=== PATIENT | female | born 1990 | race Caucasian/White ===

== ENCOUNTER → 2020-11-02 | Outpatient (CLI) | payer BC, OTHER ==
[~2020-11-02] MED LIST: CIPR500T78 PO; HYDR-3720 PO; IBP800T PO; METR500T PO
--- NOTE | 2020-11-02 15:22 | Diagnostic Imaging Report ---
INDICATION: Positive urine test. The uterus measures 8.2 x 3.8 x 5.1 cm. The endometrium is 17 mm in thickness. There is an IUD present however the IUD is low in position with a portion in the lower uterine segment and the other portion in the cervix. No myometrial mass is seen. No definite intrauterine gestational sac is present. Right ovary measures 5.2 x 2.6 x 2.9 cm and the left ovary measures 3.4 x 2.2 x 2.27 cm. Ovaries demonstrate blood flow. There is a complex cyst of the right ovary approximately 2 cm in size, likely a corpus luteum. Left ovary is unremarkable and shows normal blood flow. There is no adnexal mass or free fluid. IMPRESSION: 1. No evidence of intrauterine or ectopic . Endometrium is thickened at 17 mm. IUD is abnormally positioned in the lower uterine segment and cervix. 2. Complex right ovarian cyst, likely corpus luteum. Dictated by: Dictated on workstation # [id number]
== END ==
LOC: RAD 10:05
PROVIDERS: ATTEND Obstetrics & Gynecology
DX: N83.201 Unspecified ovarian cyst, right side (principal); R93.89 Abnormal findings on diagnostic imaging of other specified body structures; Z97.5 Presence of (intrauterine) contraceptive device
CPT/HCPCS: 36415; 76801; 76817; 84702

== ENCOUNTER → 2021-02-14 | Outpatient (CLI) | payer OTHER ==
--- NOTE | 2021-02-14 17:12 | Diagnostic Imaging Report ---
INDICATION: , anatomic survey COMPARISON: 11/02/2020 TECHNIQUE: Multiple real-time grayscale images were obtained over the gravid uterus. FINDINGS: There is a single live intrauterine gestation in cephalic presentation. The cervix measures at least 3.5 cm in length. There is no funneling or endocervical fluid. The heart rate measures 140 BPM. The amniotic fluid appears subjectively normal. There is a vertical pocket measuring 3.2 cm. The placenta is posterior without evidence of previa. The stomach and kidneys are seen. The upper and lower spine is seen. The lateral ventricles, cerebellum, and cisterna magna are seen. A four-chamber heart is seen. The right and left ventricular outflow tracks are seen. The cord insertion is seen. The nose and lips are seen. The bladder is seen. Two umbilical arteries are present, consistent with a three-vessel cord. The diaphragm is seen. The upper and lower extremities are seen. The profile is seen. Biometrical measurements are as follows: Biparietal 4.46 cm, age 19 weeks 4 days. Head circumference 17.03 cm, age 19 weeks 5 days. Abdominal circumference 13.89 cm, age 19 weeks 3 days. Femur length 3.00 cm, age 19 weeks 2 days. Sonographic estimate age: 19 weeks 4 days. Sonographic estimated date of delivery: 07/07/2021. Estimated Weight: 286 gm (+/- 42 gm). LMP percentile: 8%. heart rate: 140 beats per minute. number: 1 of 1. IMPRESSION: 1. Single live intrauterine gestation measuring at 19 weeks and 4 days which is within range of the clinical dates of 20 weeks and 2 days. 2. heart rate and amniotic fluid are normal. 3. No abnormality is seen on anatomic survey. Dictated by: Dictated on workstation # [id number]
== END ==
LOC: RAD 15:09
PROVIDERS: ATTEND Obstetrics & Gynecology
DX: Z34.02 Encounter for supervision of normal first pregnancy, second trimester (principal); Z3A.19 19 weeks gestation of pregnancy
CPT/HCPCS: 76805

== ENCOUNTER → 2021-06-22 | Outpatient (CLI) | payer OTHER ==
[2021-06-22 12:11] LABS: BASOPHILS % (AUTO) 0 % (0-10); EOSINOPHILS # (AUTO) 0.1 10^3/uL (0.0-0.3); EOSINOPHILS % (AUTO) 1 % (0-10); HEMATOCRIT 35 % (35-52); HEMOGLOBIN 11.1 g/dL (11.5-16.0); LYMPHOCYTES # (AUTO) 1.4 10^3/uL (1.0-4.0); LYMPHOCYTES % (AUTO) 20 % (12-44); MEAN CORPUSCULAR HEMOGLOBIN 28 pg (25-34); MEAN CORPUSCULAR HGB CONC 32 g/dL (32-36); MEAN CORPUSCULAR VOLUME 88 fL (80-99); MEAN PLATELET VOLUME 9.8 fL (9.0-12.2); MONOCYTES # (AUTO) 0.6 10^3/uL (0.0-1.0); MONOCYTES % (AUTO) 8 % (0-12); NEUTROPHILS % (AUTO) 70 % (42-75); PLATELET COUNT 273 10^3/uL (130-400); WHITE BLOOD COUNT 7.1 10^3/uL (4.3-11.0)
[2021-06-22 12:19] LABS: ALBUMIN 3.5 GM/DL (3.2-4.5); POTASSIUM 3.7 MMOL/L (3.6-5.0)
[2021-06-22 12:20] LABS: CALCIUM 8.9 MG/DL (8.5-10.1)
[2021-06-22 12:22] LABS: TOTAL PROTEIN 6.7 GM/DL (6.4-8.2)
[2021-06-22 12:23] LABS: BILIRUBIN,TOTAL 0.2 MG/DL (0.1-1.0)
[2021-06-22 12:25] LABS: CREATININE SERUM 0.52 MG/DL (0.60-1.30)
[2021-06-22 12:28] LABS: URIC ACID 4.4 MG/DL (2.6-7.2)
== END ==
LOC: LAB 11:50
PROVIDERS: ATTEND Family Medicine
DX: L29.9 Pruritus, unspecified (principal)
CPT/HCPCS: 36415; 80053; 83615; 83789; 84550; 85025

== ENCOUNTER 2021-07-07 03:48 | Inpatient (IN) | payer OTHER ==
[2021-07-07] VITALS (51 sets, daily range): BP systolic 99–162; BP diastolic 56–102
[~2021-07-07] VITALS: Ht 158 cm; Wt 88.5 kg
[2021-07-07] MEDS ORDERED: D5 LR IV SOLUTION 1,000 ML IV ONE (04:25)
[2021-07-07] MEDS ORDERED: MINERAL OIL 30 ML TOP PRN (04:30)
[2021-07-07] MEDS ORDERED: PNV91TAB6 PO (04:53)
[2021-07-07] MEDS: CATHETER FLUSH 10 ML SYR IV SCH ×3 (05:40→22:00)
[2021-07-07] MEDS: D5 LR IV SOLUTION 1,000 ML IV SCH ×3 (05:40→20:30)
[2021-07-07 06:10] LABS: BASOPHILS % (AUTO) 0 % (0-10); EOSINOPHILS # (AUTO) 0.1 10^3/uL (0.0-0.3); EOSINOPHILS % (AUTO) 1 % (0-10); HEMATOCRIT 35 % (35-52); HEMOGLOBIN 11.1 g/dL (11.5-16.0); LYMPHOCYTES # (AUTO) 1.8 10^3/uL (1.0-4.0); LYMPHOCYTES % (AUTO) 19 % (12-44); MEAN CORPUSCULAR HEMOGLOBIN 28 pg (25-34); MEAN CORPUSCULAR HGB CONC 32 g/dL (32-36); MEAN CORPUSCULAR VOLUME 87 fL (80-99); MEAN PLATELET VOLUME 10.3 fL (9.0-12.2); MONOCYTES # (AUTO) 0.7 10^3/uL (0.0-1.0); MONOCYTES % (AUTO) 8 % (0-12); NEUTROPHILS # (AUTO) 6.6 10^3/uL (1.8-7.8); NEUTROPHILS % (AUTO) 71 % (42-75); PLATELET COUNT 295 10^3/uL (130-400); WHITE BLOOD COUNT 9.3 10^3/uL (4.3-11.0)
--- NOTE | 2021-07-07 08:08 | History & Physical-OB ---
OB - Chief Complaint & HPI Date/Time Date of Admission: Date of Admission: July 07, 2021 at 04:20 Date seen by a Provider: July 07, 2021 Time Seen by a Provider: 07:45 Chief Complaint/History OB-Reason for Admission/Chief: Rupture of Membranes Hx : 1 Hx Para: 0 Expected Date of Delivery: July 02, 2021 Gestational Age in Weeks: 40 Gestational Age in Days: 5 Other reason for admission: SROM History of Labs A neg, antibody neg, RI. HIV/HepB/RPR NR. GC/chlamydia neg. 1 hour glucola positive, 3 hour negative. GBS negative. Allergies and Home Medications Allergies Coded Allergies: No Known Drug Allergies (Unverified , 07/26/13) Patient Home Medication List Home Medication List Reviewed: Yes Pnv95/Ferrous Fumarate/FA ( Vitamin Tablet) 28 Mg Iron-800 Mcg Tablet, 1 EACH PO DAILY, (Reported) Entered as Reported by: ELOISA CAMPOS on 07/07/21 0453 Last Action: Reviewed Discontinued Medications Ciprofloxacin HCl (Cipro) 500 Mg Tablet, 500 MG PO BID Discontinued Reason: No Longer Taking Prescribed by: ZOEY WILLINGHAM on 07/26/132022 Last Action: Discontinued Hydrocodone Bit/Acetaminophen (Hydrocodone-Apap 10-325 Tablet) 1 Each Tablet, 1- 2 TAB PO Q3H PRN for PAIN Discontinued Reason: No Longer Taking Prescribed by: TON NESBITT on 07/26/131647 Last Action: Discontinued Ibuprofen (Motrin Tablet) 800 Mg Tablet, 1 TAB PO Q6H PRN for PAIN Discontinued Reason: No Longer Taking Prescribed by: TON NESBITT on 07/26/131647 Last Action: Discontinued Metronidazole (Flagyl 500 Mg) 500 Mg Tab, 1 EACH PO BID, (Reported) Discontinued Reason: No Longer Taking Entered as Reported by: ZOEY WILLINGHAM on 07/26/132021 Last Action: Discontinued OB - History Hx of Present Care: Yes Ultrasounds: Normal mid trimester US Obstetrical Complications: None Medical Complications: None Information Induced Hypertension: No Maternal Gestational Diabetes: No Hemorrhage: No Obstetrical History Hx : 1 Hx Para: 0 Patient Past Medical History PMHx: Denies SurgHx: Tonsillectomy [place] teeth extraction Social History/Family History Alcohol Use: Denies Use Recreational Drug Use: No Smoking Cessation: Never smoker Immunizations Influenza Vaccine Up-to-Date: Yes; Up-to-Date (Jan 09, 2021) First/Initial COVID19 Vaccine: Feb 21, 2020 Second COVID19 Vaccination: Mar 22, 2020 Third COVID19 Vaccination Date: Mar 04, 2021 COVID19 Vaccine Collar Cutter: Moderna Hepatitis A: No Hepatitis B: No Tetanus Booster (TDap): Less than 5yrs (04/24/21) Rubella: immune RPR/VDRL: Negative GBS Status: Negative HBsAG: Negative OB - Admission Exam Physical Exam Vitals: Vital Signs 07/07/21 07/07/21 05:50 06:51 Temp 36.3 Pulse 87 Resp 18 B/P (MAP) 115/56 (75) O2 Delivery Room Air HEENT: NCAT Abdomen: Gravid Extremities: Normal Cervical Dilatation: 5cm Effacement: 75% Station: -3 Membranes: Ruptured Amniotic Fluid: Clear Heart Rate: 130's Accelerations: Accelerations Present Decelerations: No Decelerations Short Term Variability: Present Long-Term Variability: Average (6-25) Contractions on Admission: 6-10 Minutes Apart Labs Laboratory Tests Test 07/07/21 04:05 07/07/21 05:24 Range/Units Membranes Rupture POSITIVE White Blood Count 9.3 4.3-11.0 10^3/uL Red Blood Count 4.00 3.80-5.11 10^6/uL Hemoglobin 11.1 L 11.5-16.0 g/dL Hematocrit 35 35-52 % Mean Corpuscular Volume 87 80-99 fL Mean Corpuscular Hemoglobin 28 25-34 pg Mean Corpuscular Hemoglobin Concent 32 32-36 g/dL Red Cell Distribution Width 14.6 H 10.0-14.5 % Platelet Count 295 130-400 10^3/uL Mean Platelet Volume 10.3 9.0-12.2 fL Immature Granulocyte % (Auto) 1 % Neutrophils (%) (Auto) 71 42-75 % Lymphocytes (%) (Auto) 19 12-44 % Monocytes (%) (Auto) 8 0-12 % Eosinophils (%) (Auto) 1 0-10 % Basophils (%) (Auto) 0 0-10 % Neutrophils # (Auto) 6.6 1.8-7.8 10^3/uL Lymphocytes # (Auto) 1.8 1.0-4.0 10^3/uL Monocytes # (Auto) 0.7 0.0-1.0 10^3/uL Eosinophils # (Auto) 0.1 0.0-0.3 10^3/uL Basophils # (Auto) 0.0 0.0-0.1 10^3/uL Immature Granulocyte # (Auto) 0.1 0.0-0.1 10^3/uL OB - Assessment/Plan/Diagnosis Assessment Admission Dx 31 yo G1 at 40w5d with spontaneous rupture of membranes in early labor Blood type A neg Rubella immune GBS neg Admission Status: Inpatient Order (span 2 midnights) Reason for Inpatient Admission: Labor, delivery and course Plan Problems: (1) SROM (spontaneous rupture of membranes) Onset Date: ~ 07/07/2021 Assessment & Plan: Pre-active labor, but is making some slow cervical change and would like to avoid pitocin if possible. heart tones currently reassuring, will continue expectant management, discussed risks of prolonged rupture of membranes vs risk of induction and will continue to reassess with each cervical check and as heart tones dictate. BARRY LAI MD July 07, 2021 08:08
[2021-07-07] MEDS ORDERED: LIDOCAINE/EPI 2% 1:200,00 (XYLOCAINE) 10 ML VIAL ONE (11:08)
[2021-07-07] MEDS ORDERED: OXYTOCIN PRE-MIX DRIP 500 ML IV SCH (12:15)
[2021-07-07] MEDS ORDERED: OXYTOCIN PRE-MIX DRIP 500 ML IV ONE ×2 (12:29→20:54)
[2021-07-07] MEDS ORDERED: fentaNYL INJ 100 MCG/2 ML AMP ONE ×3 (13:59→21:25)
[2021-07-07] MEDS ORDERED: fentaNYL INJ 100 MCG/2 ML AMP IVP PRN (14:00)
[2021-07-07] MEDS ORDERED: fentaNYL 2 mcg/ml BUPIVA 0.125 100 ML ONE (17:30)
[2021-07-07] MEDS ORDERED: LIDOCAINE PF 2% 5 ML (XYLOCAINE) VIAL ONE ×2 (17:45→20:57)
[2021-07-07] MEDS ORDERED: BUPIVACAINE 0.25% 10 ML (SENSORCAINE) VIAL ONE (17:45)
[2021-07-07] MEDS ORDERED: fentaNYL INJ 100 MCG/2 ML AMP INJ ONE (18:30)
[2021-07-07] MEDS ORDERED: LACTATED RINGERS 1,000 ML IV ONE ×2 (18:30)
[2021-07-07] MEDS ORDERED: ONDANSETRON 4 MG/2 ML (SDV) Z0FRAN IV PRN (18:30)
[2021-07-07] MEDS ORDERED: NALOXONE 0.4 MG/ML 1 ML (NARCAN) VIAL IV PRN ×2 (18:30→22:15)
[2021-07-07] MEDS ORDERED: EPIDURAL (fentaNYL 2 MCG/ML BUPIVA 0.125%)100 ML BAG EPI PRN (18:30)
[2021-07-07] MEDS ORDERED: CITRIC ACID/SOB CIT (BICITRA) 30 ML UDC ONE (20:29)
[2021-07-07] MEDS ORDERED: METOCLOPRAMIDE INJ 10 MG/2 ML (REGLAN) ONE (20:29)
[2021-07-07] MEDS ORDERED: FAMOTIDINE 20MG/2ML IV (PEPCID) ONE (20:29)
[2021-07-07] MEDS ORDERED: METOCLOPRAMIDE INJ 10 MG/2 ML (REGLAN) IV ONE (20:30)
[2021-07-07] MEDS ORDERED: LACTATED RINGERS 1,000 ML IV PRN ×2 (20:30)
[2021-07-07] MEDS ORDERED: ceFAZolin 2 GM IV Premixed 50 ML IV ONE (20:30)
[2021-07-07] MEDS ORDERED: CITRIC ACID/SOB CIT (BICITRA) 30 ML UDC PO ONE (20:30)
[2021-07-07] MEDS ORDERED: FAMOTIDINE 20MG/2ML IV (PEPCID) IV ONE (20:30)
--- NOTE | 2021-07-07 20:31 | Labor Progress Note ---
Labor Progress Note Labor Progress Note Date Seen by Provider: July 07, 2021 Time Seen by Provider: 19:53 Subjective: Pt is feeling better since getting epidural. Objective: Cervical exam: / Consistency: soft Position: mid Presentation: vertex heart tones: 140 beats per minute, moderate variability, recurrent variable decelerations noted Tocometer: 3 ctx/10 minutes Assessment/Plan: John Vidales is a 31 /Para 1 / 0,Gestational Age (wks)40 here for prelabor rupture of membranes, expectant management was done for several hours per discussion with patient, and pitocin was started around 1230 pm. I saw her at about 145 pm and discussed care and definitions of protracted and arrest of labor, and again at this time. In spite of continued pitocin for this time period of 7 hours or more, she has made no cervical change in the last 6 hours and in the last hour is having more frequent variable decelerations. In light of her arrest of labor after spontaneous rupture of membranes with more than adequate trial of pitocin, discussed with her and she agrees with proceeding to given risks of prolonged pitocin use in the face of no cervical change. FSE/TOCO Anesthesia: Epidural Proceed to , consulted with Station Installation Supervisor supervisor [employer] fabrication and OR crew notified Vitals - Labs Vital Signs - I&O Vital Signs Date Time Temp Pulse Resp B/P (MAP) Pulse Ox O2 Delivery O2 Flow Rate FiO2 07/07/21 19:00 75 140/78 (98) 07/07/21 18:56 92 134/83 (100) 07/07/21 18:51 89 150/80 (103) 07/07/21 18:45 92 125/81 (96) 07/07/21 18:40 98 132/65 (87) 07/07/21 18:35 96 128/59 (82) 07/07/21 18:29 96 139/64 (89) 07/07/21 18:20 89 20 145/59 (87) 100 07/07/21 18:16 90 18 137/102 (114) 100 07/07/21 18:13 84 20 126/84 (98) 99 07/07/21 18:10 95 18 138/81 (100) 99 07/07/21 18:07 90 18 150/74 (99) 100 07/07/21 18:04 87 20 152/80 (104) 100 07/07/21 18:01 85 20 147/70 (95) 98 07/07/21 17:58 80 20 140/66 (90) 97 07/07/21 17:57 75 18 141/64 (89) 97 07/07/21 17:20 90 20 152/86 (108) 07/07/21 16:45 89 20 138/87 (104) 07/07/21 16:15 94 20 136/85 (102) 07/07/21 16:00 36.8 94 20 128/83 (98) 07/07/21 15:50 83 20 141/82 (101) 07/07/21 15:35 84 18 140/91 (107) 07/07/21 15:20 91 18 143/90 (107) 07/07/21 15:05 88 20 131/88 (102) Room Air 07/07/21 14:45 90 18 139/80 (99) Room Air 07/07/21 14:30 36.9 94 20 141/63 (89) Room Air 07/07/21 13:30 101 20 119/63 (81) 07/07/21 13:15 89 16 109/67 (81) Room Air 07/07/21 13:00 36.6 98 18 99/57 (71) Room Air 07/07/21 11:51 36.8 103 18 115/76 (89) Room Air 07/07/21 09:52 36.6 99 18 129/59 (82) 97 Room Air 07/07/21 08:51 88 16 122/77 (92) Room Air 07/07/21 07:52 36.6 112 18 110/68 (82) Room Air 07/07/21 06:51 87 18 115/56 (75) Room Air 07/07/21 05:50 36.3 105 18 120/69 (86) Room Air 07/07/21 04:50 101 18 108/63 (78) Room Air 07/07/21 04:11 37.0 111 18 134/79 (97) 97 Room Air 07/07/21 04:11 37.0 111 18 97 Room Air Labs Laboratory Tests 07/07/21 04:05: Membranes Rupture POSITIVE 07/07/21 05:24: White Blood Count 9.3, Red Blood Count 4.00, Hemoglobin 11.1L, Hematocrit 35, Mean Corpuscular Volume 87, Mean Corpuscular Hemoglobin 28, Mean Corpuscular Hem oglobin Concent 32, Red Cell Distribution Width 14.6H, Platelet Count 295, Mean Platelet Volume 10.3, Immature Granulocyte % (Auto) 1, Neutrophils (%) (Auto) 71, Lymphocytes (%) (Auto) 19, Monocytes (%) (Auto) 8, Eosinophils (%) (Auto) 1, Basophils (%) (Auto) 0, Neutrophils # (Auto) 6.6, Lymphocytes # (Auto) 1.8, Monocytes # (Auto) 0.7, Eosinophils # (Auto) 0.1, Basophils # (Auto) 0.0, Immature Granulocyte # (Auto) 0.1 BARRY LAI MD July 07, 2021 20:31
[2021-07-07] MEDS ORDERED: PHENYLEPHRINE 100 MCG/ML 10 ML (ANESTHESIA) SYR ONE (20:54)
[2021-07-07] MEDS ORDERED: KETAMINE 50 MG/5 ML SYRINGE ONE (20:54)
[2021-07-07] MEDS ORDERED: ceFAZolin 2 GM IV Premixed 50 ML ONE (21:01)
[2021-07-07] MEDS ORDERED: TRANEXAMIC ACID 100 MG/ML 10 ML INJECTION ONE (21:06)
[2021-07-07] MEDS ORDERED: proPOfol 200 MG/20 ML (DIPRIVAN) VIAL IV ONE (21:28)
[2021-07-07] MEDS ORDERED: BUPIVACAINE 0.5% 30 ML (SENSORCAINE) VIAL ONE (21:33)
[2021-07-07] MEDS ORDERED: KETOROLAC 30 MG/ML VIAL ONE (22:09)
[2021-07-07] MEDS: KETOROLAC 30 MG/ML VIAL IV SCH (22:12)
--- NOTE | 2021-07-07 22:13 | Cesarean Section Operative ---
Procedure Procedure Note Pre-operative Diagnosis: John Vidales is a (31 /Para 1 / 0, Gestational Age (wks)40 with [failed induction with arrest at 6 cm following PROM] Post-operative Diagnosis: same [] Procedure: [Primary] low transverse section Physician: SAI DELAROSA Leaf Sucker Operator: [Maurice MS 3 Estimated blood loss: [5] mL Disposition: [Stable] Findings: Viable [] male , Apgars [] 89, weight [8 pounds 10 ounces], intact placenta, 3vc, normal appearing uterus, tubes, and ovaries. Indications:John colunga (31 /Para 1 / 0,Gestational Age (wks)40 presenting for [PROM]. After no cervical change she had Pitocin induction. Epidural was placed several hours later. She had no advancement past 6 cm and unable to titrate Pitocin higher due to category 2 heart tones that were easily recovered with intrauterine resuscitation efforts. At this point I was consulted for . Procedure Details: The patient was seen in pre-op and the procedure was discussed with the patient in full, including the risks, benefits, and alternatives. All questions were answered. The patient was taken to the operating room and a time out was performed, verifying patient and procedure. After spinal anesthesia was placed by our anesthesia colleagues, the patient was placed in the dorsal supine with leftward tilt for uterine displacement.~ Her abdomen was then prepped and draped in the typical sterile fashion. A Pf annenstiel skin incision was made using a scalpel and carried down through the underlying fascia. The fascia was incised in the midline and tented up using Adrian clamps. The rectus muscles were dissected from the fascia inferiorly and superiorly. The rectus muscles were in the midline the peritoneum was identified and entered this incision was extended superiorly and inferiorly with good visualization of the bladder. The bladder blade was inserted and it appeared that the head was occluding drainage of the catheter although urine continue to flow and confirmed there was no kink in the bladder. Bladder blade was inserted to protect the bladder the vesicouterine peritoneum was dissected down to create about a bladder flap for additional protection. Bladder blade was reinserted and a low transverse uterine incision was made. This incision was extended laterally and the infant delivered with the above findings atraumatically. Nose and mouth resection was placed with Dr. Mclean. The placenta was expressed and held. The uterus was exteriorized and cleared of all clots and debris. The uterine incision was closed with a running locked 0 Monocryl suture. A second of the same suture was used to irrigate this incision and excellent hemostasis was obtained. The uterus was returned to the abdomen after the gutters were cleared of all clots and debris. Again hemostasis was appreciated. A piece of Interceed was placed over the anterior uterine wall and the incision site. The peritoneum was closed with a running 2-0 Vicryl. Hemostasis was visualized at the rectus layer. The fascia was closed with a running 0 Vicryl stitch running lateral to midline crossing in the midline. The subcutaneous layer was irrigated copiously and hemostasis was assured. The subcu was closed with a plain gut stitch. Skin was closed with subcuticular 4 Monocryl suture. Skin affix dressing was applied. Patient tolerated the procedure well sponge lap needle instrument counts were correct and she was taken the recovery room awake and in stable condition. She received 2 g Ancef prior to and incision Vitals - Labs Vital Signs - I&O Vital Signs Date Time Temp Pulse Resp B/P (MAP) Pulse Ox O2 Delivery O2 Flow Rate FiO2 07/07/21 19:00 75 140/78 (98) 07/07/21 18:56 92 134/83 (100) 07/07/21 18:51 89 150/80 (103) 07/07/21 18:45 92 125/81 (96) 07/07/21 18:40 98 132/65 (87) 07/07/21 18:35 96 128/59 (82) 07/07/21 18:29 96 139/64 (89) 07/07/21 18:20 89 20 145/59 (87) 100 07/07/21 18:16 90 18 137/102 (114) 100 07/07/21 18:13 84 20 126/84 (98) 99 07/07/21 18:10 95 18 138/81 (100) 99 07/07/21 18:07 90 18 150/74 (99) 100 07/07/21 18:04 87 20 152/80 (104) 100 07/07/21 18:01 85 20 147/70 (95) 98 07/07/21 17:58 80 20 140/66 (90) 97 07/07/21 17:57 75 18 141/64 (89) 97 07/07/21 17:20 90 20 152/86 (108) 07/07/21 16:45 89 20 138/87 (104) 07/07/21 16:15 94 20 136/85 (102) 07/07/21 16:00 36.8 94 20 128/83 (98) 07/07/21 15:50 83 20 141/82 (101) 07/07/21 15:35 84 18 140/91 (107) 07/07/21 15:20 91 18 143/90 (107) 07/07/21 15:05 88 20 131/88 (102) Room Air 07/07/21 14:45 90 18 139/80 (99) Room Air 07/07/21 14:30 36.9 94 20 141/63 (89) Room Air 07/07/21 13:30 101 20 119/63 (81) 07/07/21 13:15 89 16 109/67 (81) Room Air 07/07/21 13:00 36.6 98 18 99/57 (71) Room Air 07/07/21 11:51 36.8 103 18 115/76 (89) Room Air 07/07/21 09:52 36.6 99 18 129/59 (82) 97 Room Air 07/07/21 08:51 88 16 122/77 (92) Room Air 07/07/21 07:52 36.6 112 18 110/68 (82) Room Air 07/07/21 06:51 87 18 115/56 (75) Room Air 07/07/21 05:50 36.3 105 18 120/69 (86) Room Air 07/07/21 04:50 101 18 108/63 (78) Room Air 07/07/21 04:11 37.0 111 18 134/79 (97) 97 Room Air 07/07/21 04:11 37.0 111 18 97 Room Air Labs Laboratory Tests 07/07/21 04:05: Membranes Rupture POSITIVE 07/07/21 05:24: White Blood Count 9.3, Red Blood Count 4.00, Hemoglobin 11.1L, Hematocrit 35, Mean Corpuscular Volume 87, Mean Corpuscular Hemoglobin 28, Mean Corpuscular Hemoglobin Concent 32, Red Cell Distribution Width 14.6H, Platelet Count 295, Mean Platelet Volume 10.3, Immature Granulocyte % (Auto) 1, Neutrophils (%) (Auto) 71, Lymphocytes (%) (Auto) 19, Monocytes (%) (Auto) 8, Eosinophils (%) (Auto) 1, Basophils (%) (Auto) 0, Neutrophils # (Auto) 6.6, Lymphocytes # (Auto) 1.8, Monocytes # (Auto) 0.7, Eosinophils # (Auto) 0.1, Basophils # (Auto) 0.0, Immature Granulocyte # (Auto) 0.1 SAI DELAROSA MD July 07, 2021 22:13
[2021-07-07] MEDS ORDERED: ONDANSETRON 4 MG/2 ML (SDV) Z0FRAN IVP PRN (22:15)
[2021-07-07] MEDS ORDERED: TETANUS,DIPTH,PERTUSS P/F (BOOSTRIX) 0.5 ML VIAL IM SCH (22:15)
[2021-07-07] MEDS ORDERED: MEASLES,MUMPS,RUBELLA 1 EA INJ SC SCH (22:15)
[2021-07-08 00:30] VITALS: BP 127/58
[2021-07-08] MEDS: ACETAMINOPHEN 500 MG TAB (TYLENOL) PO SCH ×4 (00:30→18:22)
[2021-07-08] MEDS ORDERED: DOCUSATE SODIUM 100 MG (COLACE) CAP PO ONE (00:43)
[2021-07-08] MEDS: DOCUSATE SODIUM 100 MG (COLACE) CAP PO SCH ×3 (00:44→20:27)
[2021-07-08] MEDS: KETOROLAC 30 MG/ML VIAL IV SCH ×2 (03:20→09:12)
[2021-07-08] MEDS: CATHETER FLUSH 10 ML SYR IV SCH (03:20)
[2021-07-08 03:25] VITALS: BP 116/57
[2021-07-08 05:33] LABS: BASOPHILS % (AUTO) 0 % (0-10); EOSINOPHILS # (AUTO) 0.1 10^3/uL (0.0-0.3); EOSINOPHILS % (AUTO) 1 % (0-10); HEMATOCRIT 28 % (35-52); LYMPHOCYTES # (AUTO) 1.6 10^3/uL (1.0-4.0); LYMPHOCYTES % (AUTO) 17 % (12-44); MEAN CORPUSCULAR HEMOGLOBIN 28 pg (25-34); MEAN CORPUSCULAR HGB CONC 32 g/dL (32-36); MEAN CORPUSCULAR VOLUME 87 fL (80-99); MEAN PLATELET VOLUME 9.9 fL (9.0-12.2); MONOCYTES # (AUTO) 0.7 10^3/uL (0.0-1.0); MONOCYTES % (AUTO) 8 % (0-12); NEUTROPHILS # (AUTO) 7.4 10^3/uL (1.8-7.8); NEUTROPHILS % (AUTO) 75 % (42-75); PLATELET COUNT 232 10^3/uL (130-400); WHITE BLOOD COUNT 9.9 10^3/uL (4.3-11.0)
[2021-07-08] MEDS ORDERED: CATHETER FLUSH 10 ML SYR IV SCH (06:00)
[2021-07-08] MEDS ORDERED: IBUP-844 PO (06:41)
[2021-07-08] MEDS ORDERED: ACET-93 PO (06:41)
[2021-07-08] MEDS ORDERED: OXC5T PO (06:41)
--- NOTE | 2021-07-08 06:45 | Postpartum Progress Note ---
Note Note Day # [] Subjective: Patient is without complaints. Ambulating, voiding. Tolerating a regular diet without nausea or vomiting. Normal lochia. Pain is well controlled with oral pain medications. [Breast] feeding. []Has had successful void without difficulty.No complaints of Objective: [Vital signs are stable patient is afebrile General alert and oriented x3 no acute distress Chest is nonlabored Abdomen fundus is firm appropriately tender to palpation Incision clean dry and intact with dressing in place Extremities are nontender] Assessment: G1, P1 status post primary low transverse section postop day 1 doing well Plan: Routine And postoperative care. Encourage breast feeding. Encourage ambulation. Ferrous sulfate supplementation. Plan for discharge Postop day 2/3 Vitals - Labs Vital Signs - I&O Vital Signs Date Time Temp Pulse Resp B/P (MAP) Pulse Ox O2 Delivery O2 Flow Rate FiO2 07/08/21 03:25 36.9 77 18 116/57 (76) 97 Room Air 07/08/21 00:30 36.9 88 18 127/58 (81) 98 Room Air 07/07/21 23:10 36.7 86 18 127/67 (87) 98 Room Air 07/07/21 23:03 36.7 18 117/82 (94) 97 Room Air 07/07/21 23:03 Room Air 07/07/21 22:48 Room Air 07/07/21 22:48 37.2 18 114/76 (89) 97 Room Air 07/07/21 22:33 Room Air 07/07/21 22:33 37.4 18 122/87 (99) 98 Room Air 07/07/21 22:18 37.3 18 118/61 (80) 98 Room Air 07/07/21 22:18 Room Air 07/07/21 22:03 Room Air 07/07/21 22:03 37.1 18 110/69 (83) 98 Room Air 07/07/21 21:00 83 18 126/60 (82) 94 Room Air 07/07/21 20:45 80 18 135/62 (86) 97 Room Air 07/07/21 20:30 37.1 93 18 137/78 (97) 98 Room Air 07/07/21 20:15 83 18 152/81 (104) 98 Room Air 07/07/21 20:00 80 18 162/76 (104) 98 Room Air 07/07/21 19:45 76 18 140/64 (89) 97 Room Air 07/07/21 19:30 37.2 90 18 131/60 (83) 99 Room Air 07/07/21 19:15 104 18 127/65 (85) 99 Room Air 07/07/21 19:00 75 140/78 (98) 07/07/21 18:56 92 134/83 (100) 07/07/21 18:51 89 150/80 (103) 07/07/21 18:45 92 125/81 (96) 07/07/21 18:40 98 132/65 (87) 07/07/21 18:35 96 128/59 (82) 07/07/21 18:29 96 139/64 (89) 07/07/21 18:20 89 20 145/59 (87) 100 07/07/21 18:16 90 18 137/102 (114) 100 07/07/21 18:13 84 20 126/84 (98) 99 07/07/21 18:10 95 18 138/81 (100) 99 07/07/21 18:07 90 18 150/74 (99) 100 07/07/21 18:04 87 20 152/80 (104) 100 07/07/21 18:01 85 20 147/70 (95) 98 07/07/21 17:58 80 20 140/66 (90) 97 07/07/21 17:57 75 18 141/64 (89) 97 07/07/21 17:20 90 20 152/86 (108) 07/07/21 16:45 89 20 138/87 (104) 07/07/21 16:15 94 20 136/85 (102) 07/07/21 16:00 36.8 94 20 128/83 (98) 07/07/21 15:50 83 20 141/82 (101) 07/07/21 15:35 84 18 140/91 (107) 07/07/21 15:20 91 18 143/90 (107) 07/07/21 15:05 88 20 131/88 (102) Room Air 07/07/21 14:45 90 18 139/80 (99) Room Air 07/07/21 14:30 36.9 94 20 141/63 (89) Room Air 07/07/21 13:30 101 20 119/63 (81) 07/07/21 13:15 89 16 109/67 (81) Room Air 07/07/21 13:00 36.6 98 18 99/57 (71) Room Air 07/07/21 11:51 36.8 103 18 115/76 (89) Room Air 07/07/21 09:52 36.6 99 18 129/59 (82) 97 Room Air 07/07/21 08:51 88 16 122/77 (92) Room Air 07/07/21 07:52 36.6 112 18 110/68 (82) Room Air 07/07/21 06:51 87 18 115/56 (75) Room Air I & O 07/08/21 07:00 Intake Total 4500 ml Output Total 200 ml Balance 4300 ml Labs Laboratory Tests 07/08/21 05:14: White Blood Count 9.9, Red Blood Count 3.23L, Hemoglobin 9.0L, Hematocrit 28L, Mean Corpuscular Volume 87, Mean Corpuscular Hemoglobin 28, Mean Corpuscular Hemoglobin Concent 32, Red Cell Distribution Width 14.7H, Platelet Count 232, Mean Platelet Volume 9.9, Immature Granulocyte % (Auto) 0, Neutrophils (%) (Auto) 75, Lymphocytes (%) (Auto) 17, Monocytes (%) (Auto) 8, Eosinophils (%) (Auto) 1, Basophils (%) (Auto) 0, Neutrophils # (Auto) 7.4, Lymphocytes # (Auto) 1.6, Monocytes # (Auto) 0.7, Eosinophils # (Auto) 0.1, Basophils # (Auto) 0.0, Immature Granulocyte # (Auto) 0.0 SAI DELAROSA MD July 08, 2021 06:45
[2021-07-08 08:00] VITALS: BP 97/61
[2021-07-08 12:00] VITALS: BP 121/61
[2021-07-08] MEDS ORDERED: IBUPROFEN 600 MG (MOTRIN) TAB PO ONE (15:18)
[2021-07-08 15:25] VITALS: BP 110/57
[2021-07-08] MEDS: IBUPROFEN 600 MG (MOTRIN) TAB PO SCH ×2 (15:28→21:42)
[2021-07-08 20:00] VITALS: BP 118/60
[2021-07-09] MEDS: ACETAMINOPHEN 500 MG TAB (TYLENOL) PO SCH ×3 (00:32→12:32)
[2021-07-09 02:50] VITALS: BP 118/57
[2021-07-09] MEDS: IBUPROFEN 600 MG (MOTRIN) TAB PO SCH ×3 (03:26→15:24)
[2021-07-09 08:30] VITALS: BP 112/66
[2021-07-09] MEDS: DOCUSATE SODIUM 100 MG (COLACE) CAP PO SCH (08:57)
[2021-07-09 12:30] VITALS: BP 117/60
--- NOTE | 2021-07-09 14:40 | Anesthesia-Regional Post-Op ---
Regional Patient Condition Mental Status: Alert, Oriented x3 Circulation: Same as Pre-Op Headache: Absent Sensation: Full Recovery Motor Block: Absent Post Op Complications Complications None Follow Up Care/Instructions Patient Instructions None needed. Anesthesia/Patient Condition Patient is doing well, no complaints, stable vital signs, no apparent adverse anesthesia problems. No complications reported per nursing. SAMANTHA MONAE CRNA July 09, 2021 14:40
[2021-07-09] MEDS ORDERED: IBUPROFEN 600 MG (MOTRIN) TAB PO SCH ×2 (15:00)
--- NOTE | 2021-07-09 16:34 | Discharge Summary ---
Discharge Summary Hospital Course Hospital Course Date of Admission: July 07, 2021 at 04:20 Admission Diagnosis : Spontanous rupture of membranes 40 weeks and 5 days gestation Term intrauterine GBS neg Rubella immune Blood type A neg Family Physician/Provider: Barry Mclean MD Date of Discharge: 07/09/21 Discharge Diagnosis: s/p primary for arrest of labor, CPD, worsening heart rate decelerations Asymptomatic acute blood loss anemia Hospital Course: 31 yo G1 now P1 admitted after SROM at home about 230 am on 07/07, initially managed expectantly but after small amount of cervical change had failure to progress further and less frequent contractions, so pitocin was begun, but in spite of more than 6 hours of pitocin use did not progress beyond 6 cm dilation and started to have more frequent and more prolonged variable decelerations and CPD was suspected, so was done and she delivered a viable, large for gestational age male. course uncomplicated, had asymptomatic anemia treated with iron daily. Labs and Pending Lab Test: Home Meds Active Acetaminophen 500 Mg Tablet 1,000 Mg PO Q6HR 10 Days Oxyir Tablet (Oxycodone HCl) 5 Mg Tab 5 Mg PO Q4H PRN 7 Days Ibu (Ibuprofen) 600 Mg Tablet 600 Mg PO Q6HR 10 Days Reported Vitamin Tablet (Pnv95/Ferrous Fumarate/FA) 28 Mg Iron-800 Mcg Tablet 1 Each PO DAILY Assessment/Pt DC Instructions Follow up for incision check in a week with Dr. Ennis and [address] Mclean Discharge Diet: Regular Diet Discharge Physical Examination Allergies: Coded Allergies: No Known Drug Allergies (Unverified , 07/26/13) General Appearance: No Apparent Distress Respiratory: Lungs Clear, Normal Breath Sounds Cardiovascular: Regular Rate, Rhythm, No Murmur Gastrointestinal: Other (c section incision clean, dry and intact with no erythema) Extremity: Pedal Edema Skin: Normal Color, Warm/Dry Neurologic/Psychiatric: Alert, Normal Mood/Affect BARRY MCLEAN MD July 09, 2021 16:34
[2021-07-09 17:00] VITALS: BP 127/59
[2021-07-09] MEDS ORDERED: FERR325T24 PO (17:11)
[2021-07-09] MEDS ORDERED: OXC5T PO (17:12)
[2021-07-09 19:25] VITALS: BP 127/59
[2021-07-10] MEDS ORDERED: FERROUS SULF 325 MG (IRON) TAB PO SCH (07:00)
== END 2021-07-09 19:25 | disposition home or self-care (01) | DRG 787 ==
LOC: WSo 03:48 → LDRP 03:49 → WSo 04:48 → LDRP 23:03
PROVIDERS: ADMIT Family Medicine; ATTEND Family Medicine
PROC: 10D00Z1 Extraction of Products of Conception, Low, Open Approach (ICD-10-PCS; principal; 2021-07-07 21:05)
DX: O48.0 Post-term pregnancy (principal); D62 Acute posthemorrhagic anemia; O62.1 Secondary uterine inertia; Z3A.40 40 weeks gestation of pregnancy; Z37.0 Single live birth; O76 Abnormality in fetal heart rate and rhythm complicating labor and delivery; O65.9 Obstructed labor due to maternal pelvic abnormality, unspecified; O36.63X0 Maternal care for excessive fetal growth, third trimester, not applicable or unspecified; O90.81 Anemia of the puerperium
CPT/HCPCS: 36415; 83033; 84112; 85025; 86850; 86900; 86901; 99212